=== PATIENT | female | born 1960 | race Caucasian/White ===

== ENCOUNTER → 2017-03-25 | Outpatient (CLI) | payer OTHER ==
[~2017-03-25] MED LIST: ASCA500 PO; ASPEC81 PO; BIOTPOW17 PO; CALCTAB5 PO; CHOL100010 PO; DHA PO; FLV400 PO; MULT-506 PO; TRAM-10 PO
--- NOTE | 2017-03-25 08:13 | DIAGNOSTIC IMAGING REPORT ---
ULTRASOUND OF THE THYROID GLAND CLINICAL HISTORY: Thyroid nodule. COMPARISON STUDY: Thyroid ultrasound dated 09/14/2013. TECHNIQUE: Real-time, grayscale, and color flow sonography of the thyroid gland is performed utilizing a high-frequency linear transducer. Images are reviewed in the transverse and longitudinal planes. FINDINGS: Right lobe: The right lobe of the thyroid gland is normal in size and homogeneous in echotexture, measuring 5.0 x 1.3 x 1.1 cm. A honeycomb nodule in the upper pole measures 1.2 x 0.7 x 0.8 cm (previously measured 0.9 x 0.6 x 0.8 cm). Left lobe: The left lobe of the thyroid gland is normal in size and homogeneous in echotexture, measuring 4.4 x 2.2 x 2.4 cm. A complex solid and cystic nodule with foci of macroscopic colloid measures 3.1 x 1.9 x 2.4 cm (previously measured 2.7 x 1.5 x 1.6 cm). Isthmus: The thyroid isthmus is normal in appearance and measures 0.3 cm in AP diameter. IMPRESSION: 1. There is been slight increase in size of a complex solid and cystic nodule in the left thyroid lobe as compared to 2012. This is likely related to increase in cyst contents. If not previously performed, fine-needle aspiration is recommended. 2. A small right sided nodule is again noted. This does not meet sonographic criteria for fine-needle aspiration. Electronically signed by: Hima Bernal M.D. 03/25/2017 8:11 AM Dictated Date/Time: 03/25/2017 8:08 AM
== END | disposition home or self-care (01) ==
LOC: C.ULTR 07:05
PROVIDERS: ATTEND Family Medicine
DX: E04.1 Nontoxic single thyroid nodule (principal)

== ENCOUNTER → 2017-04-19 | Outpatient (CLI) | payer OTHER ==
--- NOTE | 2017-04-19 16:10 | DIAGNOSTIC IMAGING REPORT ---
RIGHT LOWER EXT JOINT WITHOUT HISTORY: 57 years-old Female chronic right-sided knee pain without reported injury or prior surgery. Pain is most pronounced medially COMPARISON: Right knee radiographs 04/09/2017 TECHNIQUE: Multiplanar multisequence MRI of the right knee was obtained without contrast FINDINGS: MENISCI: There is vertically oriented increased T2 signal of the posterior horn medial meniscus extending to both the inferior and superior articular surfaces compatible with vertical tear. Additionally, there is fraying of the free edge. Within the anterior horn and anterior junction medial meniscus there is a focal radial tear, seen nicely on image 15 of the sagittal T2 series. No associated displaced fragment or para meniscal cyst identified. There is mild amount of perivesical edema. The lateral meniscus is sharp in contour and appears to be intact. CRUCIATE LIGAMENTS: The anterior and posterior cruciate ligaments are normal in signal, morphology and course. COLLATERAL LIGAMENTS: The popliteus tendon, biceps femoris tendon, fibular collateral ligament and iliotibial band are intact. There is increased intrasubstance T2 signal with thickening involving the proximal MCL compatible with grade 2 injury, seen nicely on image 18 of the coronal PD series. EXTENSOR MECHANISM: The quadriceps and patellar tendons are intact. There is thickening with mildly increased T2 signal noted involving the proximal patellar tendon suggesting mild tendinosis. The medial and lateral patellar retinacula are intact. KNEE JOINT: There is a small joint effusion. Mild check compartmental degenerative changes are noted, most pronounced in the medial and patellofemoral compartments. Mostly low-grade chondromalacia involves the mid weightbearing portion of the medial femoral condyle. No large osteochondral defect. No high-grade chondral loss is seen within the lateral compartment. The patellofemoral compartment there is a focal area of high-grade chondral loss involving the patellar apex with adjacent mild degree of subcortical edema/cystic change and nearby intermediate grade chondromalacia of the medial patellar facet. BONE MARROW: The bone marrow signal is age appropriate. No fracture or marrow replacing process. There is minimal red marrow reconversion of the distal femur noted. SOFT TISSUES: Small Flores's cyst measures 3.3 x 0.8 x 4.5 cm. There is a mild amount of edema within the deep and superficial pretibial bursa. IMPRESSION: 1. Mild tricompartmental osteoarthritis, most pronounced in the medial and patellofemoral compartments. 2. Multifocal tearing of the medial meniscus with vertical tear of the posterior horn extending to both the superior and inferior articular surfaces. Additionally, there is radial tear of the anterior horn and anterior junction medial meniscus. 3. Grade 2 injury of the MCL. 4. Mild proximal patellar tendinosis. 5. Small joint effusion. The above report was generated using voice recognition software. It may contain grammatical, syntax or spelling errors. Electronically signed by: Srikanth Bazan M.D. 04/19/2017 4:08 PM Dictated Date/Time: 04/19/2017 3:54 PM
== END | disposition home or self-care (01) ==
LOC: C.MRI 15:06
PROVIDERS: ATTEND Orthopaedic Surgery
DX: S89.91XA Unspecified injury of right lower leg, initial encounter (principal); X58.XXXA Exposure to other specified factors, initial encounter

== ENCOUNTER → 2017-05-03 | Outpatient (CLI) | payer OTHER ==
[~2017-05-03] MED LIST changes: -CALCTAB5 PO; -DHA PO
== END | disposition home or self-care (01) ==
LOC: C.CPL 14:49
PROVIDERS: ATTEND Orthopaedic Surgery
DX: Z01.810 Encounter for preprocedural cardiovascular examination (principal); S83.241A Other tear of medial meniscus, current injury, right knee, initial encounter; X58.XXXA Exposure to other specified factors, initial encounter

== ENCOUNTER → 2017-05-18 | Day surgery (SDC) | payer OTHER ==
[2017-04-30 09:15] VITALS: Ht 160 cm; Wt 68.2 kg
[~2017-05-18] VITALS: Ht 160 cm; Wt 68.2 kg
[~2017-05-18] MED LIST changes: +ATROPINE SULFATE 0.1 MG/ML 5ML SYR IV PRN; +BUPIVACAINE 0.5 % 5 MG/1 ML PF 10ML VIAL ONE; +CEFAZOLIN 1000MG/55 ML D5W IV SCH; +DEXAMETHASONE SOD INJ 4 MG/ML VIAL ONE; +EpHEDrine SULFATE INJ 50 MG/ML AMP IV PRN; +EpINEphrine INJ 1MG/ML AMP 1 MG/ML AMP ONE; +FENTANYL CITRATE INJ 50 MCG/1 ML 2 ML VIAL ONE; +KETOROLAC TROMETHAMINE 30 MG/ML VIAL ONE; +LACTATED RINGER'S 1000ML 1,000 ML IV SCH; +LIDOCAINE HCL 2% 2 ML VIAL (20MG/ML) ONE; +MIDAZOLAM HCL 1 MG/ML 2ML VIAL ONE; +ONDANSETRON INJ 2 MG/ML 2 ML VIAL IV PRN; +ONDANSETRON INJ 2 MG/ML 2 ML VIAL ONE; +OXYCODONE/ACETAMINOPHEN 5-325 TAB PO PRN; +PROPOFOL IV EMULSION 10 MG/ML 20 ML VIAL IV ONE; +ROPIVACAINE 0.5% 5 MG/ML 30 ML VIAL ONE; +SODIUM CHLORIDE 0.9% 1000ML 1,000 ML IV SCH
--- NOTE | 2017-05-18 06:44 | History & Physical Bridge - SC ---
H&P Re-Evaluation Bridge Note: I have examined the patient, reviewed the History & Physical and in the interval since the performance of the History & Physical I have noted the following changes of clinical significance: No changes noted
--- NOTE | 2017-05-18 07:17 | [facility] Post Operative Brief Note ---
Immediate Operative Summary Operative Date May 18, 2017. Pre-Operative Diagnosis Right Knee Acute Meniscal Tear Post-Operative Diagnosis DJD of Patella and Medial Condyle Procedure(s) Performed Right Knee Arthroscopy, Chondroplasty of Patella and Medial Femoral Condyle Surgeon Dr Diaz Biological Scientist Surgeon(s) Gentry Smith PA-C Estimated Blood Loss 0ml Findings as above Specimens None Anesthesia LMA Complication(s) None Disposition Recovery Room / PACU
--- NOTE | 2017-05-18 07:28 | Discharge Instructions-SurgCtr ---
Discharge Instructions Date of Service May 18, 2017. Visit Reason for Visit: Acute Meniscal Tear, Right Knee Discharge Discharge Diagnosis / Problem: DJD MEDIAL FEMORAL CONDYLE; PATELLA DJD Discharge Goals Goal(s): Decrease discomfort, Improve function Activity Recommendations Activity Limitations: as noted below Lifting Limitations: gradually increase as tolerated Exercise/Sports Limitations: until after follow-up appointment Shower/Bathe: tomorrow Weightbearing Status: Right weightbearing (as tolerated) Anesthesia . Post Anesthesia Instructions: If you have had General Anesthesia or IV Sedation: * Do not drive today. * Resume driving when surgeon permits. * Do not make important decisions or sign legal documents today. * Call surgeon for: 1. Temperature elevations greater than 101 degrees F. 2. Uncontrollable pain. 3. Excessive bleeding. 4. Persistent nausea and vomiting. 5. Medication intolerance (nausea, vomiting or rash). * For nausea and vomiting use only clear liquids such as: tea, soda, bouillon until nausea subsides, then gradually increase diet as tolerated. * If you have any concerns or questions, call your surgeon's office. If physician is unavailable and it is an emergency, call 911 or go to the nearest emergency room. . Instructions / Follow-Up Instructions / Follow-Up MEDICATIONS: * Resume previous medications unless instructed otherwise by your surgeon. * Always take pain medication on a full stomach or with food to avoid upset stomach. * Do not drink alcohol or drive while taking narcotics. * Ibuprofen or Tylenol may be taken if narcotic not needed. SPECIAL CARE INSTRUCTIONS: __ None _X_ Keep extremity elevated and iced x 48 hours; apply ice 20-30 minutes 8-10 times/day. May remove at night. __ Crutches __ May discard when able __ Brace/Post-op shoe __ 24 hrs/day __ Remove at night _X_ Dressing __ Maintain until seen in office, may shower with plastic over site _X_ Remove dressings in 24-48 hours and then may shower _X_ Cover incisions with band-aids after showering __ Do not remove steri-strips Call physician if chills or temperature rises above 102 degrees or pain unrelieved by prescribed pain medications. Office [phone] Diet Recommendations Home Diet: resume previous diet Procedures Procedures Performed: Right Knee Arthroscopy, Chondroplasty of Patella and Medial Femoral Condyle Pending Studies Studies pending at discharge: no Medical Emergencies . Who to Call and When: Medical Emergencies: If at any time you feel your situation is an emergency, please call 911 immediately. . Non-Emergent Contact Non-Emergency issues call your: Primary Care Provider . . "Provider Documentation" section prepared by Brock Smith. .
[2017-05-18] MEDS: FENTANYL CITRATE INJ 50 MCG/1 ML 2 ML VIAL IV PRN ×3 (07:49→08:11)
--- NOTE | 2017-05-18 07:49 | OPERATIVE REPORT ---
DATE OF OPERATION: 05/18/2017 PREOPERATIVE DIAGNOSIS: Medial meniscus tear, right knee. POSTOPERATIVE DIAGNOSES: 1. Grade 2-3 medial femoral condyle degenerative arthritis. 2. Grade 2-3 degenerative arthritis of undersurface of the patella. PROCEDURE: 1. Right knee arthroscopy with chondroplasty, medial femoral condyle. 2. Chondroplasty of undersurface of the patella. SURGEON: Abdulkadir Diaz MD SNATH HANDLE ASSEMBLER: Brock Smith PA-C ANESTHESIOLOGIST: Yonny España MD ANESTHESIA: LMA. DRAINS: None. COMPLICATIONS: None. CONDITION: The patient tolerated the procedure well and returned to recovery in apparent satisfactory condition. INDICATIONS FOR SURGERY: Grisel is a 57-year-old female who hurt her knee about a year ago, sort of popping, clicking sensation. We reviewed her MRI and thought there was a meniscus tear based on interpretation and elected to go ahead and proceed with surgery. Procedure, expected outcomes and side effects were all explained in detail. PROCEDURE: The patient was taken to the OR at which time she was placed supine on the operating table and put to sleep by the anesthesia department. Examination of the right knee performed. Ligamentous bowser the knee was stable. Went ahead and prepped and draped in usual sterile fashion, began arthroscopic examination in the anteromedial and anterolateral portals. Immediately, we found no tear of the medial meniscus, it was probed and noted to be intact. There were degenerative changes, grade 2-3 in the medial femoral condyle, maybe grade 2 in the tibial plateau. Chondroplasty was performed here. ACL and lateral compartment were in good shape. The patellofemoral joint found to be fraying of the undersurface of the patella, probably grade 2-3 changes and a chondroplasty was performed. There was a little bit of synovitis with a shaved out. The knee then was copiously irrigated. All cannulas were removed. Portals were closed with 4-0 nylon sutures. 30 mL of ropivacaine, 10 mg of Toradol, 1 mL epinephrine was placed in the knee joint. Placed a sterile dressing of Xeroform, 4 x 4, ABD, Sof-Rol, and Gary bandage and returned back to recovery room in apparent satisfactory condition. SURGICAL FINDINGS: Include: 1. Grade 2-3 degenerative changes in the medial femoral condyle and grade 2 in the tibial plateau. 2. Grade 2-3 articular changes of undersurface of the patella. I attest to the content of the Intraoperative Record and any orders documented therein. Any exception s are noted below.
[2017-05-18 08:40] VITALS: TEMP 36.4
--- NOTE | 2017-05-18 08:56 | Anesthesia Progress Nt - [facility] ---
Anesthesia Post Op Note Date & Time May 18, 2017 at 08:56 Vital Signs Pain Intensity: 4 Vital Signs Past 12 Hours Date Time Temp Pulse Resp B/P (MAP) Pulse Ox O2 Delivery O2 Flow Rate FiO2 05/18/17 08:40 36.4 65 16 120/72 (88) 98 Room Air 05/18/17 08:21 37.0 67 16 115/72 99 Room Air 05/18/17 08:15 129/72 05/18/17 08:13 67 13 05/18/17 08:13 65 13 97 05/18/17 08:10 126/75 05/18/17 08:08 64 19 99 05/18/17 08:08 64 19 05/18/17 08:06 129/63 05/18/17 08:03 67 13 100 05/18/17 08:03 67 13 05/18/17 08:02 66 19 99 05/18/17 08:02 68 19 05/18/17 08:00 127/74 05/18/17 07:57 70 12 05/18/17 07:57 68 12 100 05/18/17 07:56 115/78 05/18/17 07:52 72 25 100 05/18/17 07:52 71 25 05/18/17 07:50 127/70 05/18/17 07:47 63 15 05/18/17 07:47 63 15 100 05/18/17 07:42 59 21 100 05/18/17 07:42 59 21 05/18/17 07:40 121/70 05/18/17 07:37 75 22 100 05/18/17 07:37 74 22 05/18/17 07:35 117/70 05/18/17 07:32 73 15 100 05/18/17 07:32 72 15 05/18/17 07:30 121/74 05/18/17 07:29 36.0 80 16 115/70 99 Mask 6 05/18/17 07:27 80 13 99 05/18/17 07:27 80 13 05/18/17 07:26 115/70 05/18/17 06:41 36.5 76 16 134/81 (98) 99 Room Air Notes Mental Status: alert / awake / arousable, participated in evaluation Pt Amnestic to Procedure: Yes Nausea / Vomiting: adequately controlled Pain: adequately controlled Airway Patency, RR, SpO2: stable & adequate BP & HR: stable & adequate Hydration State: stable & adequate Anesthetic Complications: no major complications apparent
[2017-05-18 09:02] VITALS: BP 112/71; PULSE 63; O2SAT 95
== END | disposition home or self-care (01) ==
LOC: X.SURG 06:19
PROVIDERS: ATTEND Orthopaedic Surgery
DX: M17.11 Unilateral primary osteoarthritis, right knee (principal); Z87.442 Personal history of urinary calculi

== ENCOUNTER → 2017-11-29 | Outpatient (CLI) | payer OTHER ==
[~2017-11-29] MED LIST changes: -ATROPINE SULFATE 0.1 MG/ML 5ML SYR IV PRN; -BUPIVACAINE 0.5 % 5 MG/1 ML PF 10ML VIAL ONE; -CEFAZOLIN 1000MG/55 ML D5W IV SCH; -DEXAMETHASONE SOD INJ 4 MG/ML VIAL ONE; -EpHEDrine SULFATE INJ 50 MG/ML AMP IV PRN; -EpINEphrine INJ 1MG/ML AMP 1 MG/ML AMP ONE; -FENTANYL CITRATE INJ 50 MCG/1 ML 2 ML VIAL ONE; -KETOROLAC TROMETHAMINE 30 MG/ML VIAL ONE; -LACTATED RINGER'S 1000ML 1,000 ML IV SCH; -LIDOCAINE HCL 2% 2 ML VIAL (20MG/ML) ONE; -MIDAZOLAM HCL 1 MG/ML 2ML VIAL ONE; -ONDANSETRON INJ 2 MG/ML 2 ML VIAL IV PRN; -ONDANSETRON INJ 2 MG/ML 2 ML VIAL ONE; -OXYCODONE/ACETAMINOPHEN 5-325 TAB PO PRN; -PROPOFOL IV EMULSION 10 MG/ML 20 ML VIAL IV ONE; -ROPIVACAINE 0.5% 5 MG/ML 30 ML VIAL ONE; -SODIUM CHLORIDE 0.9% 1000ML 1,000 ML IV SCH; -TRAM-10 PO
== END | disposition home or self-care (01) ==
LOC: C.LABSPEC 17:34
PROVIDERS: ATTEND Orthopaedic Surgery
DX: M25.461 Effusion, right knee (principal)

== ENCOUNTER 2021-04-18 05:23 | Observation (INO) ==
--- NOTE | 2021-03-07 12:44 | PAT Medication Instructions ---
Medication Instructions Date of Service March 07, 2021 Home Medications Medication Instructions Recorded betamethasone dipropionate 0.05 % 1 applic TOPICAL .COMPLEX #60 ml 01/23/21 lotion guselkumab 100 mg/mL subcutaneous 100 mg SUBCUT .COMPLEX #1 ml 02/06/21 auto-injector betamethasone dipropionate 0.05 % lotion 1 applic TOPICAL .COMPLEX guselkumab 100 mg/mL subcutaneous auto-injector 100 mg SUBCUT .COMPLEX ASK your prescriber and surgeon guselkumab 100 mg/mL subcutaneous auto-injector 100 mg SUBCUT .COMPLEX STOP taking 24 hours before surgery betamethasone dipropionate 0.05 % lotion 1 applic TOPICAL .COMPLEX Other Notes If you have any questions please call us at [phone] or [phone] or [phone] or [phone]
--- NOTE | 2021-03-12 12:49 | Anesthesiology Consultation ---
Date of Service March 12, 2021 Assessment & Plan (1) Encounter for pre-operative examination: - COVID screening: Per assessment on 03/12: Travel screen negative, no known COVID-19 positive contacts or current COVID-19 related symptoms. Patient vaccinated. Surgeon arranging preop COVID testing. Awaiting results. - S/P Right knee medial unicompartmental arthroplasty (03/25/18): SAB at L3/L4 (x1 attempt) + P[facility] at [facility] - Possible difficult intubation: hx cleft palate s/p multiple repairs. Patient s/p D&C hysteroscopy, [place]15/12[place] [facility] [place] Review Chart Review: Acceptable Risk for Surgery and Patient seen in Pre Admission Testing Teaching & Discussion Pre-Anesthesia Teaching/Discussion Notes: Instructed NPO after midnight before surgery,except medications with 15 cc of water. Medication instructions provided according to the PAT guidelines. History Surgery Operation Date: 04/18/21 07:00 Proposed Procedures p Revision Right Unicompartment to Right Total Knee Arthroplasty - Brock Forbes DO Height/Weight Height: 5 ft 3 in Weight: 80.1 kg Allergies Allergy/AdvReac Type Severity Reaction Status Date / Time fluconazole Allergy Mild Sores, Verified 03/12/21 13:35 mouth swelling Medications Home Medications Medication Instructions Recorded Confirmed Last Taken betamethasone dipropionate 0.05 % 1 applic TOPICAL .COMPLEX #60 ml 01/23/21 03/07/21 Unknown lotion guselkumab 100 mg/mL subcutaneous 100 mg SUBCUT .COMPLEX #1 ml 03/10/21 Unknown auto-injector Past Medical History Medical History Hx of corrected cleft lip and palate Obesity Osteoarthritis Psoriasis Exercise / Class Metabolic Activity II 4-5 Yardwork/Stairs/Walk up hill (one FS (no CP, no SOB)) Past Surgical History Surgical History History of corrected cleft lip and palate Multiple History of cystoscopy cystoscopy/litho History of endometrial ablation D&C hysteroscopy, ablation [place]01/15/12[place] [facility] [place] History of lithotripsy ESWL History of right knee joint replacement Partial right knee replacement Hx of eye surgery Several eye surgeries (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 Patient denies chest pain, shortness of breath, dyspnea on exertion, fever, chills, cough, wheezing, palpitations. Physical Exam Vital Signs VITALS BP 115/71 P 68 TEMP 97.7 SP02 98%RA RESP 16 PHYSICAL Full cervical extension range of motion. Full TMJ range of motion. TMD 3 finger breaths Mallampati Score 3 (scar tissue/alteration of oropharynx, hx cleft palate repair) Dentition: partial upper Lungs: clear throughout to auscultation Cardiac: regular rate and rhythm, no murmurs noted Spine: normal Carotid arteries: negative bruit Extremities: no edema Right eye deformity/lid partially shut Lab Results Anesthesia Preop Results Results Anesthesia Widget: WBC 5.57 K/uL (4.8-10.8) 03/12/21 Hgb 12.7 g/dL (12.0-16.0) 03/12/21 Hct 38.0 % (37-47) 03/12/21 Plt 325 K/uL (130-400) 03/12/21 Na 139 mmol/L (136-145) 03/12/21 K 3.6 mmol/L (3.5-5.1) 03/12/21 Cl 106 mmol/L (98-107) 03/12/21 CO2 26 mmol/L (21-32) 03/12/21 BUN 21 mg/dl (7-18) H 03/12/21 Creat 0.68 mg/dl (0.6-1.2) 03/12/21 Glucose Level 88 mg/dl (70-99) 03/12/21 PT 10.0 Seconds (9.0-12.0) 03/12/21 PTT 28.5 Seconds (21.0-31.0) 03/12/21 INR 1.0 (0.9-1.1) 03/12/21 Blood Type O Positive 03/12/21 Antibody Screen NEGATIVE 03/12/21 Testing Electrocardiogram Date: 03/12/21 Findings: + NSR @ (65) Chest X-Ray Date: 03/12/21 FINDINGS: PA and lateral chest radiographs are compared to study dated 03/02/2018. The cardiomediastinal silhouette is unremarkable. There are scattered calcified granulomas. No airspace consolidation or pleural effusion is identified. There is no pneumothorax. The bony thorax appears intact. IMPRESSION: No active disease in the chest.
--- NOTE | 2021-04-17 11:06 | History & Physical Report ---
Date of Service April 17, 2021 Assessment & Plan (1) Osteoarthritis of right knee: We will proceed with conversion to a right total knee arthroplasty. Postoperatively she will be started on aspirin for DVT prophylaxis and kept overnight in the hospital for postoperative medical management. She plans to use energy physical therapy upon discharge. History of Present Illness Chief Complaint: Arthritis of the right knee. Primary Care Provider: Abdulkadir Hayden MD Grisel is a pleasant 61-year-old female who I did a left partial knee replacement on in February 2018. She initially did well postoperatively where her symptoms have worsened. She had recurrent effusions of her right knee. She is having more more pain in the lateral compartment. After failing conservative treatment, she has elected proceed with a conversion to a right total knee arthroplasty.. Allergies Allergy/AdvReac Type Severity Reaction Status Date / Time fluconazole Allergy Mild Sores, Verified 04/03/21 15:13 mouth swelling Home Medications Medication Instructions Recorded Confirmed Type betamethasone dipropionate 0.05 % 1 applic TOPICAL .COMPLEX #60 ml 01/23/21 04/03/21 Rx lotion guselkumab 100 mg/mL subcutaneous 100 mg SUBCUT .COMPLEX #1 ml 03/10/21 04/03/21 Rx auto-injector (Tremfya) Past Med/Surg History Medical History Hx of corrected cleft lip and palate Obesity Osteoarthritis Psoriasis Surgical History History of corrected cleft lip and palate Multiple History of cystoscopy cystoscopy/litho History of endometrial ablation D&C hysteroscopy, [place]01/15/12[place] [facility] [place] of lithotripsy ESWL History of right knee joint replacement Partial right knee replacement Hx of eye surgery Several eye surgeries (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 Physical Exam On physical examination of the right knee, she does have an effusion. She has range of motion from 0 to 120 degrees. She has no instability. She is pain of the lateral joint line and the patellofemoral joint.. Constitutional WD/WN, vitals as above Eyes PERRL, conjunctivae normal, anicteric sclerae ENMT external ear and nose normal, oropharynx normal Neck trachea midline, no thyromegaly Respiratory normal respiratory effort Cardiovascular RRR, no murmur, no edema Gastrointestinal (Abdomen) normal bowel sounds, soft, nontender, no hepatosplenomegaly Psychiatric A+Ox3, euthymic affect Results & Data Results & Data Laboratory Results . Diagnostic Findings X-rays of the right knee show some moderate arthritis the lateral compartment and the patellofemoral joint. The medial sided partial knee replacement appears to be in good alignment.. PG Care Time/CCT Total # of Minutes Spent Total Time Spent with Patient: Total time spent is greater than 50% in coordination of care (as documented) at patient's floor/unit and/or counseling patient: Coding Level of Care Code None Diagnoses Osteoarthritis of right knee M17.11
[2021-04-18] MEDS ORDERED: LR 60ML/HR IV SCH (06:00)
[2021-04-18] MEDS ORDERED: ceFAZolin 2000MG 2,000 MG/15 ML SYR IV SCH (06:00)
[2021-04-18] MEDS ORDERED: FAMOTIDINE 20 MG TAB PO SCH (06:00)
[2021-04-18] MEDS ORDERED: ROPIVACAINE 0.5% HCL/PF 150 MG, BUPIVACAINE 0.75% MPF 20 ML, EPINEPHrine 30MG/30ML (OR ... INSTIL SCH (06:00)
[2021-04-18] MEDS ORDERED: ACETAMINOPHEN 500 MG TAB PO SCH (06:00)
[2021-04-18] MEDS ORDERED: ceFAZolin 1000MG 1,000 MG/7.5 ML SYR IV SCH (06:00)
[2021-04-18] MEDS ORDERED: GABAPENTIN 600 MG DOSE PO SCH (06:00)
[2021-04-18] MEDS ORDERED: LR 500ML BOLUS, THEN 15ML/HR IV SCH (06:00)
[2021-04-18] MEDS ORDERED: dexAMETHasone 4 MG TAB PO SCH (06:00)
[2021-04-18] MEDS ORDERED: TRANEXAMIC ACID / 0.7% NACL 1,000 MG/100 ML BAG IV SCH ×2 (06:00)
[2021-04-18] MEDS ORDERED: BUPIVACAINE 0.5 % 5 MG/1 ML PF 10ML VIAL ONE (06:26)
[2021-04-18] MEDS ORDERED: EPINEPHrine INJ 1 MG/ML AMP ONE (06:27)
[2021-04-18] MEDS ORDERED: ROPIVACAINE 0.5% 5 MG/ML 30 ML VIAL ONE (06:27)
--- NOTE | 2021-04-18 06:42 | History & Physical Bridge Note ---
Date of Service April 18, 2021 History & Physical Bridge Note I have examined the patient, reviewed the History & Physical and in the interval since the performance of the History & Physical I have noted the following changes of clinical significance: no changes noted
[2021-04-18] MEDS ORDERED: MIDAZOLAM HCL 1 MG/ML 2ML VIAL ONE ×2 (06:44→06:45)
[2021-04-18] MEDS ORDERED: ONDANSETRON INJ 2 MG/ML 2 ML VIAL ONE (06:49)
[2021-04-18] MEDS ORDERED: PROPOFOL IV EMULSION 10 MG/ML 20 ML VIAL IV ONE ×2 (06:49→09:34)
[2021-04-18] MEDS ORDERED: LIDOCAINE 2% 2 ML VIAL/AMP(20MG/ML) INFIL ONE (06:49)
[2021-04-18] MEDS ORDERED: ORTHO JOINT ANESTHETIC ONE (07:04)
[2021-04-18] MEDS ORDERED: HYDROmorphone INJ 1 MG/ML SYRINGE IV PRN (07:26)
[2021-04-18] MEDS ORDERED: ATROPINE SULFATE 0.1 MG/ML 10ML SYR IV PRN (07:26)
[2021-04-18] MEDS ORDERED: ONDANSETRON INJ 2 MG/ML 2 ML VIAL IV PRN ×2 (07:26→11:29)
[2021-04-18] MEDS ORDERED: fentaNYL citrate 100 MCG/2 ML VIAL IV PRN (07:26)
[2021-04-18] MEDS ORDERED: ePHEDrine sulfate 50 MG/ML AMP IV PRN (07:26)
[2021-04-18] MEDS ORDERED: LABETALOL HCL IV 5 MG/ML 20ML IV PRN (07:26)
[2021-04-18] MEDS ORDERED: MEPERIDINE HCL 25 MG/ML CARP/VIAL IV PRN (07:26)
[2021-04-18] MEDS ORDERED: ePHEDrine sulfate 50 MG/ML AMP ONE (08:12)
[2021-04-18] MEDS ORDERED: PHENYLEPHRINE HCL 10 MG/ML VIAL ONE (08:30)
--- NOTE | 2021-04-18 09:51 | Operative Report ---
PG Post Operative Report Pre & Post Diagnosis Operation Date: 04/18/21 07:50 Pre-Op Diagnosis: Degenerative Joint Disease Right Knee Painful unicompartmental knee arthroplasty Post-Op Diagnosis: Degenerative Joint Disease Right Knee Painful unicompartmental knee arthroplasty I identified the patient and participated in the time-out.: Yes Procedure Operation Date: 04/18/21 07:50 Actual Procedures p Revision Right Unicompartment knee replacement with revision of both femoral and tibial components to Right Total Knee Arthroplasty(Right) - Brock Forbes DO Surgeon Brock Forbes DO Stock Checker Brock Smith PAC Estimated Blood Loss 20 Findings Consistent with Post-Op Diagnosis Specimens Right femoral and tibial bone Complications none Disposition Disposition: Recovery Room Indications Grisel is a pleasant 61-year-old female who underwent a right partial knee replacement 2017. She initially did fairly well but then she began having more pain and more effusions of her knee. X-ray showed worsening arthritis of the lateral and patellofemoral compartments. After failing conservative treatment, she elected to proceed with a removal of the unicompartmental knee arthroplasty and conversion to a total knee arthroplasty. Description of Procedure Implants used: I used a Favian Persona total knee arthroplasty system with a size 8 standard femur, E tibia with a 30 mm stem, 32 patella, and a size 14 medial congruent polyethylene bearing. All components were cemented in place with Biomet cement. Grisel arrived [facility] for the above procedure. She was seen in the preoperative holding area and the operative extremity was identified and signed. She was given a preoperative antibiotic, TXA, a spinal anesthetic and an adductor nerve block. She was taken back to the operating room and laid on the table in supine position. She was given basic sedation. The operative knee was then prepped and draped in sterile fashion. A timeout was done, and the patient and the operative extremity was properly identified. A midline incision was made directly over the patella in line with the previous incision.. Dissection was taken down to the extensor mechanism. A subvastus arthrotomy was used. The medial retinaculum was released and the fat pad was mostly excised. The knee was flexed and the ACL, PCL, and meniscus were remove. The unicompartmental knee arthroplasty was then removed. A drill was sent down the center of the femoral canal followed by an intramedullary alirio. Off that alirio a distal femoral cutting block was placed. 11 mm was resected off the distal femur at 5 of valgus. A posterior referencing AP sizing guide was then placed on the distal femur. The femur measured to be a size 8 standard. 2 drill holes were placed in 3 of external rotation. A 4-in-1 cutting block was then impacted into place. Anterior, posterior, and chamfer cuts were then made. The proximal tibia was then exposed. An external tibial alignment guide was placed. A tibial cut guide was then anchored in place and the proximal tibia was then resected. The posterior aspect of the knee was then opened up and any additional meniscus fragments and osteophytes were removed. The tibia measured to be a size E. The tibial plate was then placed in the appropriate rotation and the tibia was drilled and punched. Trial components were then placed. I used a size 14 medial congruent polyethylene insert. The knee was brought through a full range of motion and felt to be stable. The peg holes for the femoral component were then drilled. The patella was then everted and 9 mm was resected off the posterior aspect of the patella. The patella measured to be a size 32. 3 peg holes were then drilled. A trial patella was placed. The knee was once again brought through a full range of motion and felt to be stable. Trial components were then removed. The surrounding soft tissues were injected with 100 cc of an orthopedic pain control cocktail. All components were then cemented into place with Simplex HV cement. The final polyethylene insert was then snapped into place. Once cement was dry the tourniquet was deflated. Hemostasis was obtained. A dilute betadyne lavage was then done for 3 minutes. The joint was then irrigated with normal saline solution. The subvastus arthrotomy was then closed with #1 Vicryl suture. The skin was closed with 2-0 Vicryl, 3-0V lock suture, and klaudia. A soft compressive dressing was placed. She was then transferred to a hospital bed and taken to the postanesthesia care unit in stable condition. She tolerated the procedure well. Brock Smith PA-C, was present for the entire procedure. He was critical for patient positioning, prepping, draping, retraction exposure, wound closure and application of sterile dressing. I attest to the content of the Intraoperative Record and any orders documented therein. Any exceptions are noted below.
--- NOTE | 2021-04-18 10:29 | XRay Report ---
XR knee RT 1 or 2V routine CLINICAL HISTORY: Postoperative evaluation. COMPARISON: Right knee radiographs November 26, 2020. FINDINGS: Alignment of the total right knee arthroplasty is anatomic. There is no periprosthetic fra cture or unexpected radiopaque foreign body. There are skin klaudia. IMPRESSION: Expected findings following total right knee arthroplasty. ACT 112: Negative or not required by law. Electronically signed by: Antoine Pate M.D. 04/18/2021 10:27 AM
--- NOTE | 2021-04-18 10:36 | Anesthesiology Progress Note ---
Date of Service April 18, 2021 Anesthesia Post Procedure Vital Signs Vital Signs: Temp Pulse Pulse Resp BP BP Pulse Ox 04/18/21 10:30 81 16 113/65 95 04/18/21 10:20 84 16 102/60 100 04/18/21 10:12 36.5 C 86 15 104/60 96 04/18/21 07:20 67 18 130/79 97 04/18/21 06:05 36.7 C 67 16 136/83 98 Pain Intensity Right Knee: Pain Intensity: 1 Transfer of Care Handoff Completed per policy Notes Mental Status: alert / awake / arousable Patient Amnestic to Procedure: Yes Nausea / Vomiting: adequately controlled Pain: adequately controlled Airway Patency, RR, SpO2: stable & adequate BP & HR: stable & adequate Hydration State: stable & adequate Neuraxial Anesthesia: was administered and sensory block is resolving Anesthetic Complications: no major complications apparent and Pt Satisfied with anesthetic care
[2021-04-18] MEDS ORDERED: METOCLOPRAMIDE HCL INJ 5 MG/ML 2 ML VIAL IV PRN (11:29)
[2021-04-18] MEDS ORDERED: MAGNESIUM HYDROXIDE SUSP 30 ML UDC PO PRN (11:29)
[2021-04-18] MEDS ORDERED: HYDROmorphone INJ 0.5 MG/0.5 ML SYR IV PRN (11:29)
[2021-04-18] MEDS ORDERED: NALOXONE HCL 0.4 MG/1 ML VIAL/CARP IV PRN (11:29)
[2021-04-18] MEDS ORDERED: bisacodyL 10 MG SUPP PR PRN (11:29)
[2021-04-18] MEDS: KETOROLAC 30 MG/ML VIAL IV SCH ×2 (12:43→17:27)
[2021-04-18] MEDS: SODIUM CHLORIDE 0.9% 1000ML 1,000 ML IV SCH (12:43)
[2021-04-18] MEDS: ACETAMINOPHEN 500 MG TAB PO SCH ×2 (13:34→22:09)
[2021-04-18] MEDS: ceFAZolin 2000MG 2,000 MG/15 ML SYR IV SCH (15:30)
[2021-04-18] MEDS: ASPIRIN 81 MG ECTAB PO SCH (20:13)
[2021-04-18] MEDS: DOCUSATE SODIUM 100 MG CAP PO SCH (20:13)
[2021-04-18] MEDS ORDERED: SENNA 8.6 MG TAB PO SCH (21:00)
[2021-04-19] MEDS: KETOROLAC 30 MG/ML VIAL IV SCH ×2 (00:42→06:15)
[2021-04-19] MEDS: ceFAZolin 2000MG 2,000 MG/15 ML SYR IV SCH (00:43)
[2021-04-19] MEDS: oxyCODONE HCL IR 5 MG TAB (IMMEDIATE RELEASE) PO PRN ×2 (00:57→09:07)
[2021-04-19] MEDS: SODIUM CHLORIDE 0.9% 1000ML 1,000 ML IV SCH (01:02)
[2021-04-19] MEDS: ACETAMINOPHEN 500 MG TAB PO SCH (06:15)
[2021-04-19 07:08] LABS: Hematocrit (blood only) 33.2 % (37-47); Hemoglobin 11.1 g/dL (12.0-16.0); Mean Corpuscular Hgb Conc 33.4 g/dL (32-36); Mean Corpuscular Volume 92.7 fL (80-100); Mean Platelet Volume 10.2 fL (7.4-10.4); Platelet Count 260 K/uL (130-400); RDW Coefficient of Variation 13.9 % (11.5-14.5); RDW Standard Deviation 46.9 fL (36.4-46.3); Red Blood Count 3.58 M/uL (4.2-5.4); White Blood Count 17.37 K/uL (4.8-10.8)
[2021-04-19 07:30] LABS: BUN Creatinine Ratio 27.3 (10-20); Calcium 8.8 mg/dl (8.5-10.1); Creatinine Clr Calc Pharmacy 109.5 ml/min; Est GFR (Non-African American) 102.7 ml/min; Potassium 3.9 mmol/L (3.5-5.1)
--- NOTE | 2021-04-19 07:51 | Orthopedic Progress Note ---
Date of Service April 19, 2021 Assessment & Plan (1) Status post right knee replacement: Overall she is doing well. She denies any much pain in the right knee. She will be seen by physical therapy today for ambulation and range of motion exercises. The nursing staff can change the dressing after physical therapy. She can be discharged home later today. She is on aspirin for DVT prophylaxis. She will follow-up with orthopedics in 2 weeks. Zack Recinos was seen and examined at bedside this morning. Overall she is doing well. She is not having much pain in the right knee. She has been up and ambulating to the bathroom. She has no complaints.. Review of Systems All systems reviewed & are unremarkable except as noted in HPI & below. Physical Exam On physical examination of the right knee, the dressing is clean and dry. Her leg is out in full extension. She has active dorsiflexion plantarflexion of her right ankle. Sensation is intact throughout.. Results & Data Results & Data Laboratory Results . Diagnostic Findings Postoperative x-rays of the right knee show the prosthesis to be in anatomic alignment without any evidence of fracture, dislocation, or loosening. PG Care Time/CCT Total # of Minutes Spent Total Time Spent with Patient: Total time spent is greater than 50% in coordination of care (as documented) at patient's floor/unit and/or counseling patient: Coding Level of Care Code 16608 Post Operative Follow-Up Diagnoses Status post right knee replacement Z96.651
--- NOTE | 2021-04-19 07:52 | Discharge Summary ---
Date of Service April 19, 2021 Admission HPI (Per Admitting) Grisel is a pleasant 61-year-old female who I did a left partial knee replacement on in February 2018. She initially did well postoperatively where her symptoms have worsened. She had recurrent effusions of her right knee. She is having more more pain in the lateral compartment. After failing conservative treatment, she has elected proceed with a conversion to a right total knee arthroplasty.. Admission Exam (Per Admitting) On physical examination of the right knee, she does have an effusion. She has range of motion from 0 to 120 degrees. She has no instability. She is pain of the lateral joint line and the patellofemoral joint.. Principal Diagnosis Same as "Discharge Diagnosis" noted below under Discharge Instructions. Discharge Exam On physical examination of the right knee, the dressing is clean and dry. Her leg is out in full extension. She has active dorsiflexion plantarflexion of her right ankle. Sensation is intact throughout.. Discharge Data Procedures Performed Operation Date: 04/18/21 07:50 Actual Procedures p Revision Right Unicompartment to Right Total Knee Arthroplasty(Right) - Brock Forbes DO Ordered Studies 04/18/21 07:26 US - OR guided needle placemen Routine Hospital Course (1) Status post right knee replacement: On April 18, 2021 Grisel arrived at [facility] and underwent a right knee replacement without complication. She had a spinal anesthetic. Postoperatively she was started on aspirin for DVT prophylaxis and transferred to the general orthopedic floors. Her hospital course was uneventful. On postop day #1 her vital signs were stable and her pain was well controlled. She was able to participate well with physical therapy doing ambulation and range of motion exercises. She was then discharged home. She will follow-up with orthopedics in 2 weeks. PG Care Time/CCT Total # of Minutes Spent Total Time Spent with Patient: Total time spent is greater than 50% in coordination of care (as documented) at patient's floor/unit and/or counseling patient: Discharge Plan Discharge Items Patient Disposition: Home - Home Health Services Reason For Visit: Degenerative Joint Disease Right Knee Painful Uni Discharge Diagnosis: Right knee replacement Activity: As commented below Non-emergency contact: Surgeon Call non-emergency contact if: your wound has increased redness and your wound has increased drainage Follow-up/Referrals: Abdulkadir Hayden MD [Primary Care Provider] - Diet: Regular Addtl Attending Provider Instructions: Activity and Therapy Recommendations: * If you are using [facility] then therapy will be provided at your home until they feel you have accomplished all of your goals. * If you are using [facility] then Physical Therapy will be provided until they feel you are ready to start Outpatient Physical Therapy. * If you are not using home therapy then Outpatient Physical Therapy should start about 3-5 days from your day of surgery. Therapy will last about 6-10 weeks * It is important not to put a pillow under your knee when you are relaxing or sleeping. It is just as important to make sure you are getting your knee perfectly straight as it is to regain your knee bend. * You were shown a series of exercises in the hospital. Do these exercises three times each day including the exercises you were shown in physical therapy. * Get up and walk several times each day. For the first four weeks, try not to stand or walk for more than one hour at a time. If you do stand or walk for more than one hour, you will not hurt anything, but your leg will likely swell. * As you feel comfortable, you may change from the walker or crutches to a cane and then to independent walking. Medications: * Narcotic You will likely be sent home from the hospital with a prescription for the narcotic pain medication that worked best throughout your stay. * Aspirin Most patients will be required to take Aspirin 81mg twice a day for 6 weeks after surgery. This is obtained [id number] and a prescription is not necessary. * Other medications may be prescribed for specific circumstances. If you have any questions, please call the office at . * Resume previous home medications unless otherwise instructed TEDs/Elastic Stockings: The white elastic stockings help limit swelling and prevent blood clots from forming in your legs.~ The more you wear them, the more they work. Wear them for six weeks. Dressing Care: The dressing can be changed after physical therapy on postop day #1. Daily dry dressing changes for a few days, especially if the incision is still draining some. If the incision is not draining then you may leave the klaudia open to air. If there is a little bit of drainage or if the klaudia are getting stuck on your clothing then cover the incision with a dry dressing. The klaudia will be removed at your 2 week follow-up appointment. Showering: You may shower 5 days from the day of surgery as long as the incision is no longer draining. You may shower with the klaudia exposed. Let soapy water run over the klaudia and pat them dry. Do not scrub or soak the incision. Things To Watch For: * Drainage from the incision site that occurs more than one week after your surgery. * Increased redness at the incision site. * Fever above 102 degrees Fahrenheit. * Unusual chest pain or shortness of breath. * Call [facility] at with any of the above problems Follow-Up Visit: Follow-up with Dr. Forbes's PA (Brock Smith) 2-3 weeks after your day of surgery. He will remove your klaudia and answer any questions. If you have any additional questions or concerns, Dr Forbes is usually in the office at the same time and will be available An appointment was probably scheduled when you signed-up for surgery in the office. If you have any questions call Office Instructions: More detailed instructions as well as Frequently Asked Questions were provided in a folder by our office when you signed-up for surgery. Please review these instructions when you get home. If you have any further questions or concerns, please feel free to call the office at [phone] Pending Studies at Discharge: No Stand-Alone Forms: [facility], Smoking Cessation Medications and DC Order Prescriptions: New oxycodone 5 mg Tablet 5 mg PO Q4H PRN (Reason: pain) Qty: 40 RF: 0 aspirin 81 mg Tablet,Delayed Release (Dr/Ec) 81 mg PO BID 42 Days Qty: 84 RF: 0 Continued Tremfya 100 mg/mL auto-injector 100 mg subcut .COMPLEX Qty: 1 RF: 1 betamethasone dipropionate 0.05 % lotion 1 applic topical .COMPLEX Qty: 60 RF: 1 Discharge Orders: Discharge Order (Routine); Ordered 04/19/21 Ordered By: Brock Forbes Admission Data Admit Date/Time: 04/18/21 10:15 Attending Provider: Brock Forbes Admit Provider: Brock Forbes Primary Care Provider: Abdulkadir Hayden
[2021-04-19] MEDS ORDERED: dexAMETHasone 4 MG TAB PO SCH (08:00)
[2021-04-19] MEDS: ASPIRIN 81 MG ECTAB PO SCH (09:00)
[2021-04-19] MEDS: DOCUSATE SODIUM 100 MG CAP PO SCH (09:00)
[2021-04-19] MEDS ORDERED: MULTIVITAMIN TAB PO SCH (09:00)
== END 2021-04-19 11:28 | disposition home health service (06) ==
LOC: ASU 05:23 → 3E 05:23